=== PATIENT | male | born 1950 | race Hispanic/Latino ===

== ENCOUNTER 2017-02-09 06:58 | Day surgery (SDC) | payer MEDICARE, BC ==
[2017-02-08 12:06] VITALS: BMI 32.3
[2017-02-09] MEDS ORDERED: Lidocaine 2% Inj (20ml) ONE (07:27)
[2017-02-09] MEDS ORDERED: Iodixanol 320 MG/ML 200 ML BOTTLE IV ONE (07:27)
[2017-02-09] MEDS ORDERED: Midazolam 2 MG/2 ML VIAL ONE ×2 (07:27→09:10)
[2017-02-09] MEDS ORDERED: Sodium Chloride 0.9% 1,000 ML IV SCH (10:00)
[2017-02-09 10:19] VITALS: RESP 18; TEMP 98.7
[2017-02-09 11:56] VITALS: BP 132/79; PULSE 56; O2SAT 968
--- NOTE | 2017-02-09 20:45 | CARDCATH ---
PROCEDURE DATE: 02/09/2017 PROCEDURES: 1. Left and right coronary angiography. 2. Left ventriculography. 3. Right femoral arteriography. 4. Angio-Seal deployment. HISTORY: This is a 66-year-old male with a history of hypertension, diabetes, hyperlipidemia, who has had recent exertional chest pain and an abnormal electrocardiogram. Cardiac catheterization was recommended. INDICATIONS: 1. New-onset angina. 2. Multiple cardiac risk factors. FINDINGS: Hemodynamics: The aortic pressure was 130/70 with left ventricular pressure of 130/10. CORONARY ANATOMY: 1. The left mainstem had an 80% ostial stenosis. 2. The left main and the LAD were moderately ectatic. The LAD had multiple areas of ectasia, but no evidence of high-grade stenosis. The diagonal branches had mild disease. 3. The left circumflex artery gave rise to one large obtuse marginal branch, which had mild irregularities. 4. The right coronary artery was also ectatic and calcified. This was occluded in its midportion. Left to right collaterals were seen at the distal RCA. LEFT VENTRICULOGRAPHY: Hand injection was performed in the left ventricular revealing normal wall motion with an ejection fraction of 65%. RIGHT FEMORAL ARTERIOGRAPHY: A right femoral arteriogram was performed showing evidence of appropriate level of arterial puncture. There is no evidence of significant disease and the puncture site was then closed with deployment of an Angio-Seal device. CONCLUSION: 1. Severe left main disease and occluded RCA. 2. Preserved LV systolic function. RECOMMENDATIONS: Given the above anatomic findings, revascularization with coronary bypass surgery has been recommended. Arrangements will be made for this within the next 1 to 2 weeks. Continued risk factor control as advised. Aspirin, statin, and beta-josy therapy will be initiated. Jw Weaver MD cc: Bob Hodge MD
== END 2017-02-09 13:20 | disposition home or self-care (01) ==
LOC: CATH 06:58
PROVIDERS: ATTEND Internal Medicine Cardiovascular Disease
DX: I25.118 Atherosclerotic heart disease of native coronary artery with other forms of angina pectoris (principal); I10 Essential (primary) hypertension; E78.5 Hyperlipidemia, unspecified; E11.9 Type 2 diabetes mellitus without complications; Z79.84 Long term (current) use of oral hypoglycemic drugs

== ENCOUNTER 2017-04-19 08:18 | Emergency (ER) | payer MEDICARE, BC ==
[2017-04-19 08:28] VITALS: BMI 30.2
[2017-04-19 08:36] VITALS: TEMP 98.5
--- NOTE | 2017-04-19 08:47 | ED PDOC ---
Arrival/HPI - General Chief Complaint: Lower Extremity Problem/Injury Time Seen by Provider: 04/19/17 08:43 Historian: Patient - History of Present Illness Narrative History of Present Illness (Text): 04/19/17 08:44 pt p/w + 3-4 days onset of left lower calf/leg tenderness on palpation, with pain rated at 8/10 with palpation; at rest, no pain; pt is able to ambulate without difficulties; pt states no fever/chills/sweats, no cp/sob/palpitations, no abd pain, no n/v, no numbness/tingling; pt denied fall/trauma/sick contact; pt states he traveled down to [place] over the holidays; pt s/p 3 vessel CABG in 01/2017; pt is here for further eval; pt's without other complaints. Time/Duration: < week Symptom Onset: Sudden Symptom Course: Unchanged Quality: Throbbing Severity Level: 8, Severe Past Medical History - Provider Review Nursing Documentation Reviewed: Yes - Travel History Have you recently traveled outside w/in the past 3 mons?: No - Past History Past History: No Previous - Cardiac Hx Cardiac Disorders: Yes Hx Hypertension: Yes Hx Pacemaker: No - Neurological Hx Paralysis: No - Endocrine/Metabolic Hx Endocrine Disorders: Yes Hx Diabetes Mellitus Type 2: Yes - Hematological/Oncological Hx Blood Transfusions: No - Musculoskeletal/Rheumatological Hx Musculoskeletal Disorders: No - Psychiatric Hx Emotional Abuse: No Hx Physical Abuse: No Hx Substance Use: No - Surgical History Hx Cardiac Catheterization: Yes Hx Coronary Artery Bypass Graft: Yes - Anesthesia Hx Anesthesia: Yes Hx Anesthesia Reactions: No Hx Malignant Hyperthermia: No - Suicidal Assessment Feels Threatened In Home Enviroment: No Family/Social History - Physician Review Nursing Documentation Reviewed: Yes Family/Social History: No Known Family HX Smoking Status: Never Smoked Hx Alcohol Use: Yes (ON WEEKENDS) Frequency of alcohol use: Socially Hx Substance Use: No Allergies/Home Meds Allergies/Adverse Reactions: Allergies No Known Allergies Allergy (Verified 04/19/17 08:36) Home Medications: Home Meds Medication Instructions Recorded Confirmed Aspirin [Aspirin EC] 325 mg PO DAILY 02/08/17 04/19/17 Atorvastatin [Lipitor] 80 mg PO DAILY 02/08/17 04/19/17 Fenofibrate [Tricor] 145 mg PO DAILY 02/08/17 04/19/17 Glipizide [Glucotrol] 10 mg PO BID 02/08/17 04/19/17 Lisinopril [Zestril] 20 mg PO DAILY 02/08/17 04/19/17 MetFORMIN [glucOPHAGE] 1,000 mg PO BID 02/08/17 04/19/17 [place]-3S/Dha/Epa/Fish Oil [Fish 1 cap PO DAILY 02/08/17 04/19/17 Oil 1,200 mg Softgel] Vitamin E 1,000 unit PO DAILY 02/08/17 04/19/17 Metoprolol Succinate XL [Toprol XL] 50 mg PO DAILY 02/09/17 04/19/17 Review of Systems - Review of Systems Constitutional: Normal Eyes: Normal ENT: Normal Respiratory: Normal Cardiovascular: Normal Gastrointestinal: Normal Genitourinary Male: Normal Musculoskeletal: Other (left lower leg pain) Skin: Normal Neurological: Normal Endocrine: Normal Hemo/Lymphatic: Normal Psychiatric: Normal Physical Exam Vital Signs Reviewed: Yes (mildly elevated BP) Vital Signs Temp Pulse Resp BP Pulse Ox 04/19/17 11:10 98.5 F 52 L 18 130/71 99 04/19/17 11:09 48 L 18 130/71 97 04/19/17 08:25 98.5 F 52 L 18 142/83 97 Temperature: Afebrile Blood Pressure: Hypertensive Pulse: Regular Respiratory Rate: Normal Appearance: Positive for: Well-Appearing, Non-Toxic, Comfortable, Other (NAD, resting in bed, alert/awake, cooperative) Pain Distress: None Mental Status: Positive for: Alert and Oriented X 3 - Systems Exam Head: Present: Atraumatic, Normocephalic Pupils: Present: PERRL, Other (wearing eyeglasses, no nystagmus, no photophobia) Extroacular Muscles: Present: EOMI Conjunctiva: Present: Normal Ears: Present: Normal Mouth: Present: Moist Mucous Membranes, Normal Teeth Pharnyx: Present: Normal Nose (External): Present: Atraumatic Neck: Present: Normal Range of Motion, Trachea Midline. No: MIDLINE TENDERNESS Respiratory/Chest: Present: Clear to Auscultation, Good Air Exchange, Other ( CTA b/l, no w/r/r; no accessory muscle use noted, no tachypenia). No: Respiratory Distress, Accessory Muscle Use Cardiovascular: Present: Regular Rate and Rhythm, Normal S1, S2. No: Murmurs Abdomen: Present: Normal Bowel Sounds, Other (well nourished male, no focal tenderness, no perez's sign, no mcburney's point tenderness). No: Tenderness, Distention, Peritoneal Signs Back: Present: Normal Inspection. No: Midline Tenderness Upper Extremity: Present: Normal Inspection, Normal ROM, NORMAL PULSES, Neurovascularly Intact, Capillary Refill < 2s. No: Cyanosis, Edema Lower Extremity: Present: Normal Inspection, NORMAL PULSES, Normal ROM, Tenderness, Neurovascularly Intact, Capillary Refill < 2 s, Other (left medial/ proximal calf region a small region with superficial skin erythema/+ tenderness on exam, NON-fluctuant; no diffuse swelling/edema noted, neurovasc intact b/l, strength 5/5 grossly intact in all limbs, intact ROM). No: Edema, CALF TENDERNESS, Dadie's Sign, Swelling Neurological: Present: GCS=15, CN II-XII Intact, Speech Normal Skin: Present: Warm, Dry, Normal Color. No: Rashes Psychiatric: Present: Alert, Oriented x 3, Normal Insight, Normal Concentration Medical Decision Making ED Course and Treatment: 04/19/17 08:51 Impression: left lower leg focal tenderness, r/o DVT, likely superficial thrombophelbitis; unlikely cellulitis/abscess i have consider all the differential diagnosis regarding pt's chief medical complaints/clinical findings, including but are not limited to: left lower leg focal tenderness, r/o DVT, likely superficial thrombophelbitis; unlikely cellulitis/abscess A/P: left lower leg pain - accucheck - us - observe - supportive care 04/19/17 11:34 pt is made aware of his medical results pt is awaiting vascular consult with dr christos payan 11:30am - i spoke with Dr Fabiola Payan, made aware, agrees with ED mgt/txt, suggests warm compress/compressive stockings and ASA (which pt is already on) and will f/ u with pt as outpt f/u pt is made aware of dr medellin' recommendation pt will f/u as directed pt will be discharged home Re-evaluation Time: 11:34 Reassessment Condition: Improving,but remains with symptoms - Lab Interpretations I have reviewed the lab results: Yes Interpretation: All labs normal - RAD Interpretation Radiology Orders: 04/19/17 08:43 DUPLEX LOWER EXTRM VEIN LEFT [US] Stat US - thrombus in greater saphenous vein; no deep vein DVT 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 Ulcer: No History Surgical Site Infection Following: None - Disposition Have Diagnosis and Disposition been Completed?: Yes Diagnosis: Thrombophlebitis leg superficial Disposition: HOME/ ROUTINE Disposition Time: 11:30 Patient Problems: Current Active Problems Problem Status Onset Thrombophlebitis leg superficial Acute Condition: STABLE Discharge Instructions (ExitCare): Superficial Thrombophlebitis (ED) Print Language: OCCITAN Additional Instructions: Make sure to see your doctor in 1-2 days Follow up with Dr Christos Payan as needed for vascular consults WEAR COMPRESSIVE STOCKINGS WARM COMPRESS to left leg 20min/hr over the next few days DRINK PLENTY OF FLUIDS take your medications as prescribed RETURN TO ED IF worse pain, cant breath, persistent vomiting, high fever >101- 102 for hours, altered behavior, unable to urinate, heavy/persistent bleeding, passing out, chest pain, or other medical emergencies Referrals: Bob Hodge MD [Family Provider] - Follow up with primary Christos Payan MD [Staff Provider] - Follow up with primary Forms: [employer] ([place])
[2017-04-19 11:11] VITALS: O2SAT 99
[2017-04-19 12:22] VITALS: BP 121/65; PULSE 47; RESP 16
--- NOTE | 2017-04-19 18:43 | US ---
PROCEDURE: Left lower extremity venous US HISTORY: Leg pain and swelling. Evaluate for DVT. PHYSICIAN(S): Christos Gr MD. TECHNIQUE: Duplex sonography and color-flow Doppler with graded compression were used to evaluate the deep venous system of the left lower extremity. FINDINGS: The visualized deep venous system of the left lower extremity is sonographically normal and compressible. Normal wave forms and augmentation are seen. There is no sonographic evidence for deep venous thrombosis in the visualized segments of the left lower extremity. There is isolated superficial thrombophlebitis in the proximal GSV. Remainder of the GSV has been removed for bypass surgery. IMPRESSION: 1. No sonographic evidence for deep venous thrombosis in the visualized segments of the left lower extremity. 2. Limited superficial thrombophlebitis in the proximal GSV.
== END 2017-04-19 12:14 | disposition home or self-care (01) ==
LOC: ED 08:18
DX: I80.02 Phlebitis and thrombophlebitis of superficial vessels of left lower extremity (principal)

== ENCOUNTER 2017-06-03 10:20 | Emergency (ER) | payer MEDICARE, BC ==
[2017-06-03 10:22] VITALS: BMI 30.9
[2017-06-03 10:24] VITALS: RESP 18; TEMP 98.1
[2017-06-03] MEDS ORDERED: Sodium Chloride 0.9% 500 ML IV STA ×2 (10:49→11:47)
--- NOTE | 2017-06-03 10:52 | ED PDOC ---
Arrival/HPI - General Chief Complaint: Syncope Time Seen by Provider: 06/03/17 10:28 Historian: Patient - History of Present Illness Narrative History of Present Illness (Text): 06/03/17 10:49 66 year old male, with past medical history of hypertension, CAD, CABG and diabetes, presents to the Emergency department s/p syncopal episode today. Patient informs he was performing his routine exercises in the cardiac rehab, when he suddenly felt dizzy and became unresponsive. Patient informs similar episode in the past prior to his surgery in 02/15/17. Patient is currently awake , alert and pleasantly talking. Patient denies any changes to his blood pressure medication and informs compliance with all his other medications. Patient denies any fever, chills, nausea, vomiting, diarrhea, chest pain, shortness of breath, abdominal pain or any other complaints. Time/Duration: 4-6 hours Symptom Onset: Gradual Symptom Course: Resolved Activities at Onset: Other (exercise) Context: Other (Cardiac rehab) Past Medical History - Provider Review Nursing Documentation Reviewed: Yes - Past History Past History: No Previous - Infectious Disease Hx of Infectious Diseases: None - Cardiac Hx Cardiac Disorders: Yes Hx Hypertension: Yes - Neurological Hx Paralysis: No - Endocrine/Metabolic Hx Endocrine Disorders: Yes Hx Diabetes Mellitus Type 2: Yes - Hematological/Oncological Hx Blood Transfusions: No - Musculoskeletal/Rheumatological Hx Musculoskeletal Disorders: No - Psychiatric Hx Emotional Abuse: No Hx Physical Abuse: No Hx Substance Use: No - Surgical History Hx Cardiac Catheterization: Yes Hx Coronary Artery Bypass Graft: Yes - Anesthesia Hx Anesthesia: Yes Hx Anesthesia Reactions: No Hx Malignant Hyperthermia: No - Suicidal Assessment Feels Threatened In Home Enviroment: No Family/Social History - Physician Review Nursing Documentation Reviewed: Yes Family/Social History: Unknown Family HX Smoking Status: Never Smoked Hx Alcohol Use: Yes (ON WEEKENDS) Hx Substance Use: No Allergies/Home Meds Allergies/Adverse Reactions: Allergies No Known Allergies Allergy (Verified 04/19/17 08:36) Home Medications: Home Meds Medication Instructions Recorded Confirmed Aspirin [Aspirin EC] 325 mg PO DAILY 02/08/17 06/03/17 Atorvastatin [Lipitor] 80 mg PO DAILY 02/08/17 06/03/17 Fenofibrate [Tricor] 145 mg PO DAILY 02/08/17 06/03/17 Lisinopril [Zestril] 20 mg PO DAILY 02/08/17 06/03/17 MetFORMIN [glucOPHAGE] 1,000 mg PO BID 02/08/17 06/03/17 [place]-3S/Dha/Epa/Fish Oil [Fish 1 cap PO DAILY 02/08/17 06/03/17 Oil 1,200 mg Softgel] Vitamin E 1,000 unit PO DAILY 02/08/17 06/03/17 Metoprolol Succinate XL [Toprol XL] 50 mg PO DAILY 02/09/17 06/03/17 Insulin Detemir [Levemir] 30 units SC HS 06/03/17 06/03/17 Review of Systems - Physician Review All systems were reviewed & negative as marked: Yes - Review of Systems Constitutional: Normal. absent: Fevers Eyes: Normal ENT: Normal Respiratory: Normal. absent: SOB Cardiovascular: Normal. absent: Chest Pain Gastrointestinal: Normal. absent: Abdominal Pain, Diarrhea, Nausea, Vomiting Genitourinary Male: Normal Musculoskeletal: Normal Skin: Normal Neurological: Dizziness, Other (Syncope) Endocrine: Normal Hemo/Lymphatic: Normal Psychiatric: Normal Physical Exam Vital Signs Reviewed: Yes Vital Signs Temp Pulse Resp BP Pulse Ox 06/03/17 13:01 64 18 123/66 97 06/03/17 12:33 57 L 18 120/59 L 95 06/03/17 11:59 65 18 103/53 L 97 06/03/17 10:24 98.1 F 57 L 18 107/42 L 95 Temperature: Afebrile Blood Pressure: Hypotensive Pulse: Regular Respiratory Rate: Normal Appearance: Positive for: Well-Appearing, Non-Toxic, Comfortable Pain Distress: None Mental Status: Positive for: Alert and Oriented X 3 Finger Stick Blood Glucose: 80 - Systems Exam Head: Present: Atraumatic, Normocephalic Pupils: Present: PERRL Extroacular Muscles: Present: EOMI Conjunctiva: Present: Normal Mouth: Present: Moist Mucous Membranes Neck: Present: Normal Range of Motion Respiratory/Chest: Present: Clear to Auscultation, Good Air Exchange. No: Respiratory Distress, Accessory Muscle Use Cardiovascular: Present: Normal S1, S2, Bradycardic, Other (systolic murmur). No: Murmurs Abdomen: Present: Normal Bowel Sounds. No: Tenderness, Distention, Peritoneal Signs Back: Present: Normal Inspection Upper Extremity: Present: Normal Inspection. No: Cyanosis, Edema Lower Extremity: Present: Normal Inspection. No: Edema Neurological: Present: GCS=15, CN II-XII Intact, Speech Normal Skin: Present: Dry, Diaphoretic (mild). No: Rashes, Normal Color ([place]) Psychiatric: Present: Alert, Oriented x 3, Normal Insight, Normal Concentration Medical Decision Making ED Course and Treatment: 06/03/17 11:18 Impression: 66 year old male presents to the Emergency department s/p syncopal episode. Plan: -- EKG -- Labs -- IV Fluids -- Reassess and disposition Progress Notes: 06/03/17 14:00 feels much better; HR and BP stable. Discussed with Dr Howell. - Lab Interpretations Lab Results: 06/03/17 10:27 06/03/17 10:27 Lab Results 06/03/17 10:27: Sodium 145, Potassium 5.3 H, Chloride 109 H, Carbon Dioxide 19 L , Anion Gap 22 H, BUN 20, Creatinine 1.5, Est GFR ( Amer) 56, Est GFR ( Non-Af Amer) 47, Random Glucose 126 H, Calcium 10.6 H, Total Bilirubin 0.6, AST 71 H, ALT 54, Alkaline Phosphatase 44, Troponin I < 0.01, Total Protein 7.7, Albumin 4.4, Globulin 3.3, Albumin/Globulin Ratio 1.3 06/03/17 10:27: WBC 12.3 H, RBC 4.64, Hgb 13.8 L, Hct 41.4 L, MCV 89.2, MCH 29.7 , MCHC 33.3, RDW 14.6 H, Plt Count 195, MPV 12.8 H, Gran % 47.1 L, Lymph % (Auto ) 45.2 H, [place] % (Auto) 5.8, Eos % (Auto) 1.5, Baso % (Auto) 0.4, Gran # 5.79, Lymph # (Auto) 5.6 H, [place] # (Auto) 0.7 H, Eos # (Auto) 0.2, Baso # (Auto) 0.05 - Medication Orders Current Medication Orders: Discontinued Medications Atropine Sulfate (Atropine) 0.5 mg IVP STAT STA Stop: 06/03/17 11:48 Last Admin: 06/03/17 11:54 Dose: 0.5 mg IVP Administration Document 06/03/17 11:54 [place] (Rec: 06/03/17 11:54 [place] [facility] [id number] Charges for Administration # of IVP Administrations 1 Sodium Chloride (Sodium Chloride 0.9%) 500 mls @ 999 mls/hr IV .Q31M STA Stop: 06/03/17 11:19 Last Admin: 06/03/17 10:53 Dose: 999 mls/hr eMAR Start Stop Document 06/03/17 10:53 [place] (Rec: 06/03/17 10:54 [place] [facility] [id number] Intravenous Solution Start Date 06/03/17 Start Time 10:54 End Date 06/03/17 Sodium Chloride (Sodium Chloride 0.9%) 500 mls @ 999 mls/hr IV .Q31M STA Stop: 06/03/17 12:17 Last Admin: 06/03/17 11:52 Dose: 999 mls/hr eMAR Start Stop Document 06/03/17 11:52 [place] (Rec: 06/03/17 11:52 [place] [facility] [id number] Intravenous Solution Start Date 06/03/17 Start Time 11:52 - Scribe Statement The provider has reviewed the documentation as recorded by the Scribe Keegan Aldrich. All medical record entries made by the Scribe were at my direction and personally dictated by me. I have reviewed the chart and agree that the record accurately reflects my personal performance of the history, physical exam, medical decision making, and the department course for this patient. I have also personally directed, reviewed, and agree with the discharge instructions and disposition. Disposition/Present on Arrival - Present on Arrival Any Indicators Present on Arrival: No History of DVT/PE: No History of Uncontrolled Diabetes: No Urinary Catheter: No History of Decub. Ulcer: No History Surgical Site Infection Following: None - Disposition Have Diagnosis and Disposition been Completed?: Yes Diagnosis: Vasovagal syncope Disposition: HOME/ ROUTINE Disposition Time: 14:00 Patient Plan: Discharge Condition: IMPROVED Discharge Instructions (ExitCare): Syncope (ED) Additional Instructions: Call Dr Howell if dizziness returns to consider medication adjustment. Referrals: Bob Hodge MD [Primary Care Provider] - Follow up with primary Forms: [employer] ([place])
[2017-06-03 11:03] LABS: BASO # 0.05 K/mm3 (0.0-2.0); BASO % 0.4 % (0.0-3.0); EOS # 0.2 (0.0-0.7); EOS % 1.5 % (1.5-5.0); GRAN # 5.79 (1.4-6.5); GRAN % 47.1 % (50.0-68.0); HEMOGLOBIN 13.8 g/dL (14.0-18.0); LYMPH # 5.6 (1.2-3.4); LYMPH % 45.2 % (22.0-35.0); MEAN CELL VOLUME 89.2 fl (80.0-105.0); MEAN CORPUSCULAR HEMOGLOBIN 29.7 pg (25.0-35.0); MEAN CORPUSCULAR HGB CONC 33.3 g/dl (31.0-37.0); MEAN PLATELET VOLUME 12.8 fl (7.0-11.0); MONO # 0.7 (0.1-0.6); MONO % 5.8 % (1.0-6.0); RBC 4.64 10^6/uL (3.5-6.1); RED CELL DISTRIBUTION WIDTH 14.6 % (11.5-14.5); WHITE BLOOD COUNT 12.3 10^3/ul (4.5-11.0)
[2017-06-03 11:15] LABS: BLOOD UREA NITROGEN 20 mg/dL (7-21); GFR AFRICAN-AMERICAN 56; GFR NON-AFRICAN AMERICAN 47
[2017-06-03 11:16] LABS: ALB/GLOB RATIO 1.3 (1.1-1.8); ALBUMIN 4.4 g/dL (3.0-4.8); ALT/SGPT 54 U/L (7-56); AST/SGOT 71 U/L (17-59); CALCIUM 10.6 mg/dL (8.4-10.5)
[2017-06-03 11:27] LABS: TROPONIN I < 0.01 ng/mL
[2017-06-03 13:02] VITALS: BP 123/66; PULSE 64; O2SAT 97
--- NOTE | 2017-06-04 09:45 | CARD ---
APPROVED REPORT EKG Measurement Heart [id number] <Conclusion> Sinus bradycardia Possible Inferior infarct, age undetermined STTW changes c/w ischemia.
== END 2017-06-03 14:33 | disposition home or self-care (01) ==
LOC: ED 10:20
DX: R55 Syncope and collapse (principal)
CPT/HCPCS: 80053; 84484; 85025; 93005; 96374; 99285; J7040